=== PATIENT | male | born 1995 | race Caucasian/White ===

== ENCOUNTER 2018-07-26 12:22 | Observation (INO) | payer OTHER ==
[2018-07-26 13:18] LABS: Bilirubin Negative (Negative); Blood, Urine Negative (Negative); Clarity CLEAR (Clear); Glucose, Urine (Dipstick) Negative (Negative); Leukocyte Negative (Negative); Nitrite Negative (Negative); Protein, Urine (Dipstick) Negative (Neg-Trace); Specific Gravity, Urine 1.016 (1.002-1.036); Urobilinogen 0.2 mg/dL (0.2-1.0); pH, Urine 5.5 (5.0-9.0)
[2018-07-26 13:27] LABS: Amphetamine Not Detected (NotDetected); Barbiturates Screen Not Detected (NotDetected); Benzodiazepine Screen Not Detected (NotDetected); Cocaine Metabolite Screen Not Detected (NotDetected); Medtox Control Line Valid? VALID (VALID); Medtox Reader # READER 1; Methadone Not Detected (NotDetected); Methamphetamine Not Detected (NotDetected); Opiate Screen Not Detected (NotDetected); Oxycodone Screen Not Detected (NotDetected); Phencyclidine (PCP) Not Detected (NotDetected); THC/Cannabinoid Screen Not Detected (NotDetected); Tricyclic Screen Not Detected (NotDetected)
[2018-07-26 13:27] LABS: #Basophils 0.1 thou/uL (0.0-0.2); #Lymphocytes 1.1 thou/uL (1.20-3.40); #Monocytes 0.5 thou/uL (0.11-0.59); %Basophils 0.6 % (0.0-1.0); %Eosinophils 0.2 % (0.0-10.0); %Lymphocytes 9.7 % (21.0-51.0); %Monocytes 4.2 % (0.0-10.0); %Neutrophils 85.3 % (42.0-75.0); Hemoglobin 14.9 g/dL (14.0-18.0); Mean Corpuscular HGB CONC 33.5 g/dL (32.0-36.0); Mean Corpuscular Hemoglobin 29.9 pg (27.0-31.0); Mean Corpuscular Volume 89.3 fL (78.0-98.0); Mean Platelet Volume 8.2 fL (7.4-10.4); Platelet Count 304 thou/uL (130-400); RBC Distribution Width 11.2 % (11.5-14.5); Red Blood Cell (RBC) Count 4.98 mill/uL (4.70-6.10); White Blood Cell (WBC) Count 11.7 thou/uL (4.8-10.8)
[2018-07-26 13:55] LABS: ALT (SGPT) 85 U/L (8-55); AST (SGOT) 28 U/L (5-34); Acetaminophen Less than 6.0 mcg/mL (10.0-30.0); Albumin 4.9 g/dL (3.5-5.0); Alcohol Less than 10 mg/dL (Less than 10); Alkaline Phosphatase 70 U/L (40-150); Anion Gap 18 mmol/L (10-20); BUN (Urea Nitrogen) 11 mg/dL (8.9-20.6); Bilirubin, Total 0.5 mg/dL (0.2-1.2); CK (CPK) 111 U/L (30-200); Calc. Creatinine Clearance 0 mL/min (70-130); Carbon Dioxide 20 mmol/L (22-29); Chloride 105 mmol/L (98-107); Estimated GFR-MDRD Greater than 90; Globulin 3.2 g/dL (2.4-3.5); Glucose 108 mg/dL (70-105); Potassium 4.3 mmol/L (3.5-5.1); Protein, Total 8.1 g/dL (6.0-8.3); Salicylate Less than 8.0 mg/dL (15.0-30.0); Sodium 138 mmol/L (136-145)
[2018-07-26] MEDS ORDERED: Ondansetron PF 4 MG/2 ML Vial IVP PRN (16:04)
[2018-07-26] MEDS ORDERED: Ondansetron ODT 4 MG TAB PO PRN (16:04)
[2018-07-26] MEDS ORDERED: Lorazepam 2 MG/ML VIAL SLOW IVP PRN (16:12)
--- NOTE | 2018-07-26 17:16 | HP ---
PRIMARY CARE PROVIDER: Unknown. CHIEF COMPLAINT: Overdose. HISTORY OF PRESENT ILLNESS: Mr. Burns is a pleasant 22-year-old gentleman, who was seen at [facility] on July 26, 2018. He reports that he has a history of depression. He was prescribed Wellbutrin about 4 months ago. He reports that he did not benefit from Wellbutrin. He is currently on fluoxetine. He reports on and off suicidal ideations. He reports that at 11 p.m. last night, he took 10 to 15 tablets of Wellbutrin 300 mg dose. When I asked why he did it, he reports that he was by himself and it was something to do. The patient reports having visual hallucinations. He reports that objects in the room are appearing to be different at times. He also reports seeing spiders and hearing whispers. REVIEW OF SYSTEMS: All other systems reviewed and found to be negative. PAST MEDICAL HISTORY: Depression and hypothyroidism. PAST SURGICAL HISTORY: Right ACL repair. PSYCHIATRIC HISTORY: Depression. SOCIAL HISTORY: The patient reports drinking 2 to 3 alcoholic drinks every other day. He denies any recreational drug use. He uses a nicotine vaporizer. FAMILY HISTORY: Significant for depression in both parents. ALLERGIES: NO KNOWN DRUG ALLERGIES. CURRENT MEDICATIONS: 1. Levothyroxine 112 mcg daily. 2. Fluoxetine 40 mg daily. PHYSICAL EXAMINATION: GENERAL: On examination, Mr. Burns is awake and alert, not in acute distress. VITAL SIGNS: Blood pressure is 154/84, pulse 109, respiratory rate 14, and oxygen saturation 97% on room air. He is afebrile. EYES: No scleral icterus, no conjunctival pallor. ENT: Dry mucosal membranes, no oropharyngeal erythema or exudates. NECK: Supple, nontender, trachea is midline. RESPIRATORY: Accessory muscles of breathing are not active. Chest wall movements are symmetric bilaterally. Lungs are clear to auscultation without wheeze, rhonchi, or crepitations. CARDIOVASCULAR: S1 and S2 are heard, tachycardic and regular. Peripheral pulses palpable. No carotid bruit. No pericardial rub. ABDOMEN: Soft, nontender, bowel sounds heard, no hepatomegaly, no splenomegaly. NEUROLOGIC: Cranial nerves 2 through 12 intact, deep tendon reflexes 2+. MUSCULOSKELETAL: Power is 5/5 in all 4 extremities. SKIN: No rashes or subcutaneous nodules. LYMPHATIC: No cervical lymphadenopathy. PSYCHIATRIC: Normal mood, normal affect, the patient is oriented to person, place, and time. LABORATORY DATA: Mr. Burns's labs and investigations were reviewed. Electrocardiogram shows sinus tachycardia, no ST changes to suggest an acute coronary syndrome. He has leukocytosis with 11,700 white cells, of which 85.3% are neutrophils, normal hemoglobin, normal platelet count, normal sodium, normal potassium, normal creatinine, mildly elevated ALT of 85, normal AST, normal alkaline phosphatase, normal total bilirubin, mildly elevated TSH of 6.3997, urinalysis that is negative and negative urine toxicology screen. Plasma alcohol level was less than 10. ASSESSMENT AND PLAN: Mr. Burns is a pleasant 22-year-old gentleman who was seen at [facility] on July 26, 2018. His problem list includes: 1. Drug overdose: Mr. Burns is presenting with overdose on Wellbutrin. He will be admitted to the hospital for further management. Emergency room physician reports that he has talked to Poison Control and they recommended a monitoring for seizures and for tachycardia. The patient monitored for approximately 24 hours from the time of injection. I will follow those instructions. 2. Suicidal ideation: Once the patient is medically cleared, [facility] will be consulted. 3. Hypothyroidism: TSH is elevated. We will check free T3 and free T4. LEVEL OF RISK: Moderate. LEVEL OF COMPLEXITY: Moderate. Job ID: [id number]
[2018-07-26 17:33] LABS: Free T4 (Free Thyroxine) 1.06 ng/dL (0.70-1.48)
[2018-07-26 20:56] VITALS: BMI 33.5
[2018-07-26] MEDS: Sodium Chloride 0.9% 1,000 ML IV SCH (21:03)
[2018-07-26] MEDS: Famotidine 20 MG TAB PO SCH (21:03)
[2018-07-27 05:39] LABS: #Basophils 0.1 thou/uL (0.0-0.2); #Eosinphils 0.1 thou/uL (0.0-0.7); #Lymphocytes 2.6 thou/uL (1.20-3.40); #Monocytes 0.8 thou/uL (0.11-0.59); #Neutrophils 4.4 thou/uL (1.40-6.50); %Basophils 0.6 % (0.0-1.0); %Eosinophils 1.1 % (0.0-10.0); %Monocytes 10.3 % (0.0-10.0); %Neutrophils 54.9 % (42.0-75.0); Hemoglobin 13.5 g/dL (14.0-18.0); Mean Corpuscular HGB CONC 34.4 g/dL (32.0-36.0); Mean Corpuscular Hemoglobin 31.1 pg (27.0-31.0); Mean Corpuscular Volume 90.4 fL (78.0-98.0); Mean Platelet Volume 8.3 fL (7.4-10.4); Platelet Count 264 thou/uL (130-400); RBC Distribution Width 11.3 % (11.5-14.5); Red Blood Cell (RBC) Count 4.33 mill/uL (4.70-6.10)
[2018-07-27 05:58] LABS: ALT (SGPT) 63 U/L (8-55); AST (SGOT) 18 U/L (5-34); Albumin 4.1 g/dL (3.5-5.0); Alkaline Phosphatase 58 U/L (40-150); Anion Gap 12 mmol/L (10-20); BUN (Urea Nitrogen) 13 mg/dL (8.9-20.6); Bilirubin, Total 0.4 mg/dL (0.2-1.2); Calc. Creatinine Clearance 175 mL/min (70-130); Calcium 9.2 mg/dL (7.8-10.44); Carbon Dioxide 22 mmol/L (22-29); Chloride 109 mmol/L (98-107); Estimated GFR-MDRD 88; Globulin 2.6 g/dL (2.4-3.5); Glucose 91 mg/dL (70-105); Potassium 3.4 mmol/L (3.5-5.1); Protein, Total 6.7 g/dL (6.0-8.3); Sodium 140 mmol/L (136-145)
[2018-07-27] MEDS: Famotidine 20 MG TAB PO SCH ×2 (08:24→21:04)
[2018-07-27] MEDS ORDERED: Enoxaparin Sodium 40 MG/0.4 ML SYRINGE SC SCH (09:00)
[2018-07-27] MEDS ORDERED: Potassium Chloride 20 MEQ TAB PO SCH (09:30)
[2018-07-27] MEDS: Sodium Chloride 0.9% 1,000 ML IV SCH (10:12)
--- NOTE | 2018-07-27 15:00 | PDOC.PN ---
- Subjective Encounter Start Date: 07/27/18 Encounter Start Time: 07:40 Pt seen for followup re: medication overdose. Says he feels well, no complaints. - Objective Resuscitation Status - Order Detail: 07/26/18 15:58 Resuscitation Status Routine Co-Sign Provider: Resuscitation Status: FULL: Full Resuscitation MAR Reviewed: Yes Vital Signs & Weight: Vital Signs (12 hours) Temp Pulse Resp BP BP Pulse Ox 07/27/18 11:30 98.3 F 88 16 135/71 98 07/27/18 08:18 97.8 F 87 16 116/56 L 98 07/27/18 04:00 134/70 07/27/18 03:28 98.9 F 93 14 134/70 97 Weight Weight 247 lb 8 oz I&O: 07/26/18 07/27/18 07/28/18 06:59 06:59 06:59 Intake Total 700 Balance 700 Result Diagrams: 07/27/18 05:14 07/27/18 05:14 EKG Reviewed by me: Yes (Tele: NSR (tachycardia overnight)) Phys Exam - Physical Examination Obese HEENT: moist MMs Neck: supple Respiratory: clear to auscultation bilateral Cardiovascular: RRR Gastrointestinal: soft Neurological: moves all 4 limbs Psychiatric: normal affect Dx/Plan (1) Drug overdose Code(s): T50.901A - POISONING BY UNSP DRUG/MEDS/BIOL SUBST, ACCIDENTAL, INIT Status: Acute Comment: wellbutrin overdose, improved (2) Suicidal ideation Code(s): R45.851 - SUICIDAL IDEATIONS Status: Acute Comment: [facility] deion (3) Depression Code(s): F32.9 - MAJOR DEPRESSIVE DISORDER, SINGLE EPISODE, UNSPECIFIED Status : Chronic Comment: continue fluoxetine (4) Hypothyroidism Code(s): E03.9 - HYPOTHYROIDISM, UNSPECIFIED Status: Chronic Comment: normal free T3 and T4, continue synthroid - Plan * . Review of Systems - Review of Systems Cardiovascular: negative: chest pain, palpitations, orthopnea, paroxysmal nocturnal dyspnea, edema, light headedness Gastrointestinal: negative: Nausea, Vomiting, Abdominal Pain, Diarrhea, Constipation, Melena, Hematochezia Neurological: negative: Weakness, Numbness, Incoordination, Change in Speech, Confusion, Seizures - Medications/Allergies Allergies/Adverse Reactions: Allergies Allergy/AdvReac Type Severity Reaction Status Date / Time No Known Drug Allergies Allergy Verified 07/26/18 16:38 Medications: Current Medications Enoxaparin Sodium (Lovenox) 40 mg SC 0900 [facility] Last Admin: 07/27/18 08:24 Dose: 40 mg Famotidine (Pepcid) 20 mg PO BID [facility] Last Admin: 07/27/18 08:24 Dose: 20 mg Sodium Chloride (Normal Saline 0.9%) 1,000 mls @ 70 mls/hr IV .[id number] [facility] Last Admin: 07/27/18 10:12 Dose: 1,000 mls Lorazepam (Ativan) 2 mg SLOW IVP Q15M PRN PRN Reason: Seizures Ondansetron HCl (Zofran Odt) 4 mg PO Q6H PRN PRN Reason: Nausea/Vomiting Ondansetron HCl (Zofran) 4 mg IVP Q6H PRN PRN Reason: Nausea/Vomiting Sodium Chloride (Flush - Normal Saline) 10 ml IVF Q12HR PRN PRN Reason: Saline Flush Sodium Chloride (Flush - Normal Saline) 10 ml IVF PRN PRN PRN Reason: Saline Flush
[2018-07-27 20:08] VITALS: BP 133/76; TEMP 97.8
--- NOTE | 2018-07-28 11:13 | DIS ---
DATE OF ADMISSION: 07/26/2018 DATE OF DISCHARGE: 07/28/2018 PRIMARY CARE PROVIDER: None known. DISCHARGE DIAGNOSES: 1. Medication overdose. 2. Suicidal ideation. CONDITION ON DISCHARGE: Condition of the patient on the day discharge, stable. I assessed Mr. Burns on the day of discharge. Please refer to my daily progress note for further details regarding this [id number] encounter. HOSPITAL COURSE: Mr. Burns is a pleasant 22-year-old gentleman who was admitted to [facility] on July 26, 2018. Please refer to my history and physical note dated July 26, 2018, for further details. He was managed for Wellbutrin overdose. He was tachycardic during the night, but the following day, he was not tachycardic. He had an elevated TSH of 6.3997, but free T3 and free T4 were normal. He did not have any seizures. His potassium was low at 3.4 on July 27. This was replaced. He was medically cleared. He was evaluated by [facility] and is currently awaiting transfer to [facility] for inpatient psychiatric management. DISCHARGE MEDICATIONS: Fluoxetine 40 mg daily and Synthroid 112 mcg daily. DISCHARGE DESTINATION: [facility]. Job ID: [id number]
== END 2018-07-28 03:10 | disposition short-term general hospital (02) ==
LOC: ERS 12:22 → ERHOLD 15:55 → 2NO 20:41
PROVIDERS: ADMIT Internal Medicine; ATTEND Internal Medicine
DX: T43.292A Poisoning by other antidepressants, intentional self-harm, initial encounter (principal); F32.9 Major depressive disorder, single episode, unspecified; R45.851 Suicidal ideations; E03.9 Hypothyroidism, unspecified; Z98.890 Other specified postprocedural states; Z79.899 Other long term (current) drug therapy
CPT/HCPCS: 36415; 80053; 80306; 80307; 81003; 82550; 84439; 84443; 84481; 85025; 93005; 96360; 96361; 96372; G0378; J1650